=== PATIENT | male | born 1980 | race Caucasian/White ===

== ENCOUNTER 2024-03-01 13:32 | Outpatient (AMB) | payer OTHER, SELFPAY ==
[2024-03-01 13:36] VITALS: BP 118/82; PULSE 74; TEMP 36.9; O2SAT 97; BMI 35.1
--- NOTE | 2024-03-01 13:36 | AM.OFFWIN_ITS ---
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 Hurts more when breathing deeply. Started 12:40 pm today when mowing lawn Patient Tobacco Use Status: Never used Tobacco Allergies No Known Allergies Allergy (Verified 03/01/24 13:41) Do you need a note to return to daycare/school/sports/work: Yes HPI HPI Comments History of Present Illness Details Patient is a 43-year-old male complaining of rib pain and pain with deep inspiration x1 hour. He states it started when he was mowing the lawn and denies any trauma or falls. He states he may have twisted the wrong way and then he felt a pop. He has not sure if he pushes on it if it hurt as hes is afraid to press on his chest, he has not taken anything to try to make it feel better but he states deep breathing makes it worse. [facility] Surgical History No pertinent past surgical history Social History Patient Tobacco Use Status: Never used Tobacco Review of Systems Const All systems reviewed & are unremarkable except as noted in HPI and below Physical Exam Vital Signs: Last Vital Signs Temp 98.5 F 03/01/24 13:36 Pulse 74 03/01/24 13:36 BP 118/82 03/01/24 13:36 Pulse Ox 97 03/01/24 13:36 Oxygen Delivery Method Room Air 03/01/24 13:36 BMI result Body Mass Index 35.1 Chest Chest palpation & inspection: normal inspection of the chest and localized rib tenderness with anteroposterior compression (Central chest) Resp Effort & Inspection: normal respiratory effort and able to speak in complete sentences Auscultation: clear to auscultation bilaterally, no rales, no rhonchi, no wheezes and lung sounds not diminished Cardio Rate: regular rate Rhythm: regular rhythm Heart sounds: no gallops, no murmurs, no rubs and normal S1 and S2 Assessment & Plan Assessment & Plan (1) Pleuritic chest pain: Code(s): R07.81 - Pleurodynia Plan: As chest pain is reproducible, likely strained chest muscle/rib muscles when he turns the wrong way, explained this can take a long time to heal. I recommended rest, no working out, ice and NSAIDs and to be patient with healing. Plan see above Orders: Orders XR chest 2V Today R07.81 - Pleurodynia Coding Level of Care Code New Pt Level 3 (97857) Diagnoses Pleuritic chest pain R07.81
== END 2024-03-01 14:24 | disposition home or self-care (01) ==
PROVIDERS: PCP Internal Medicine; Visit Provider Physician Assistant
DX: R07.81 Pleurodynia (principal)
CPT/HCPCS: 99203

== ENCOUNTER 2024-03-01 13:49 | Outpatient (REF) | payer OTHER, SELFPAY ==
--- NOTE | ~2024-03-01 | XR_ITS ---
EXAMINATION: XR CHEST CLINICAL INFORMATION: Pleuritic tiny a COMPARISON: None available. TECHNIQUE: 2 views of the chest were obtained. FINDINGS: Minor atelectasis at the left base could reflect an early infiltrate. I would recommend a short-term follow-up. Lungs otherwise clear. No pleural effusions. Heart and pulmonary vessels are normal. XR/XR chest 2V IMPRESSION: Query early left basilar infiltrate.
== END 2024-03-01 13:50 | disposition home or self-care (01) ==
LOC: HO.HMGCX 13:49
PROVIDERS: PCP Internal Medicine; Visit Provider Physician Assistant
DX: R07.81 Pleurodynia (principal)
CPT/HCPCS: 71046

== ENCOUNTER → 2024-07-25 11:02 | Outpatient (BNVA) | payer OTHER, SELFPAY | PROVIDERS: PCP Internal Medicine; Visit Provider Physician Assistant Medical | DX: M54.41 Lumbago with sciatica, right side (principal) | CPT/HCPCS: 99203 ==

== ENCOUNTER → 2024-08-01 10:42 | Outpatient (BNVA) | payer OTHER, SELFPAY | PROVIDERS: PCP Internal Medicine; Visit Provider Physician Assistant Medical | DX: M54.41 Lumbago with sciatica, right side (principal) | CPT/HCPCS: 99213 ==

== ENCOUNTER → 2024-08-08 10:52 | Outpatient (BNVA) | payer OTHER, SELFPAY | PROVIDERS: PCP Internal Medicine; Visit Provider Physician Assistant Medical | DX: M54.50 Low back pain, unspecified (principal) | CPT/HCPCS: 99213 ==

== ENCOUNTER → 2024-08-28 09:51 | Outpatient (BNVA) | payer OTHER, SELFPAY | PROVIDERS: PCP Internal Medicine; Visit Provider Physician Assistant Medical | DX: M54.41 Lumbago with sciatica, right side (principal) | CPT/HCPCS: 99213 ==

== ENCOUNTER 2024-09-11 10:00 | Outpatient (RCR) | payer OTHER, SELFPAY ==
--- NOTE | 2024-08-10 11:42 | MHC.PT.EP ---
[facility] [place] [facility] [place] [facility] [address] Lori Casiano [address] [phone] F: [phone] F: [phone] F: [phone] F: [phone] Physical Therapy Plan of Care Date of Evaluation: 08/10/24 Date of Surgery: Diagnosis: This is a 44 yo male presenting to skilled PT with a script for sciatica. Assessment: This is a 44 yo male presenting to skilled PT with a script for sciatica. Patient reporting that he twisted to the R to unbolt a sink at work when he felt a pop in his back, had pain and this radiated to B LE (07/24). He went to urgent care, he had an x-ray (no fracture), was given a steroid and pain relivers. He is also being followed by work connection who prescribed him more medication and sent him to PT. Pain is located centralized low back but radiates to B sides as well (sharp pain). Occasionally he feels it in his legs still which can radiate to the toes B ( like spaghetti legs ). Pain increases with walking, sitting, dressing, the cold. He returns to work light duty on 08/13. He returns to work connection on 08/23. Assessment reveals pain that ranges from up to a 10/10 at the worst. Patient demos decreased lumbar and BLE ROM, strength of core, back and B LE's, TTP at lumbar surrounding soft tissues, lateral hips and impaired posture with forward head, thoracic kyphosis and rounded shoulders. Based on functional limitations, impaired QOL and pain tolerance patient is a good candidate for skilled PT 2x/wk for 4wks. Frequency and Duration: The patient will be seen 2x/wk for 4wks Short Term Goals: Pt will demonstrate improved postural awareness and understanding of core engagement with supine and standing tasks without cues throughout session to improve overall back safety in 2 weeks. Pt will demonstrate centralization of sx in 2 weeks. Pt will continue to reinforce precautions, sitting, standing and ADL modifications with proper body mechanics in 2 wks. 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 Pt will demonstrate ability to bend and lift WNL min to no pain for household tasks in 4 wks. Pt will be I in HEP and compliant in 4wks Pt will return to work in full when medically cleared by MD Treatment Plan: Modalities to reduce pain, spasms and effusion. Manual therapy to restore motion and function. Therapeutic exercise to improve strength and flexibility. Neuromuscular re-education for posture and balance. Therapeutic activities to return to functional activities of daily living. Electronically signed by: Ewa Rausch PT Please sign and return to therapist. Thank you for your referral.
--- NOTE | 2024-10-12 08:28 | MHC.PT.DC ---
[facility] [place] Office [place] Office [place] Office [address] Lori Casiano [address] [phone] F: [phone] F: [phone] F: [phone] F: [phone] Physical Therapy Discharge Report Diagnosis: This is a 44 yo male presenting to skilled PT with a script for sciatica. Date of Surgery: Date of Evaluation: 08/10/24 Date of Discharge: 10/12/24 Treatments to Date: 8 Cancellations to Date: 0 No Shows to Date: 0 Discharge Status: Achieved Goals Improved Function Independent with HEP Discharge Summary: Patient came to 8 sessions of PT with reports of some relief in symptoms. He has a good HEP to continue on his own at this time and skilled PT is no longer indicated at this time. Chart was DC'd after 30 days. Electronically signed by: Ewa Rausch PT Please sign and return to therapist. Thank you for your referral.
== END 2024-10-12 08:28 | disposition home or self-care (01) ==
LOC: HO.PTCHIC 10:00
PROVIDERS: PCP Internal Medicine; Visit Provider Physician Assistant Medical
DX: M54.42 Lumbago with sciatica, left side (principal); M54.41 Lumbago with sciatica, right side
CPT/HCPCS: 97110; 97140; 97162

== ENCOUNTER → 2024-09-13 09:34 | Outpatient (BNVA) | payer OTHER, SELFPAY | PROVIDERS: PCP Internal Medicine; Visit Provider Physician Assistant Medical | DX: M54.41 Lumbago with sciatica, right side (principal) | CPT/HCPCS: 99213 ==

== ENCOUNTER 2024-09-24 07:35 | Outpatient (REF) | payer OTHER, SELFPAY | END 2024-09-24 07:36 | disposition home or self-care (01) | LOC: HO.MRI 07:35 | PROVIDERS: Visit Provider Internal Medicine | DX: Z13.89 Encounter for screening for other disorder (principal) ==

== ENCOUNTER → 2024-10-04 09:15 | Outpatient (BNVA) | payer OTHER, SELFPAY | PROVIDERS: PCP Internal Medicine; Visit Provider Physician Assistant Medical | DX: M54.41 Lumbago with sciatica, right side (principal) | CPT/HCPCS: 99213 ==

== ENCOUNTER → 2024-10-25 09:31 | Outpatient (BNVA) | payer OTHER, SELFPAY | PROVIDERS: Visit Provider Physician Assistant Medical | DX: M54.17 Radiculopathy, lumbosacral region (principal) | CPT/HCPCS: 99213 ==

== ENCOUNTER → 2024-11-15 09:42 | Outpatient (BNVA) | payer OTHER, SELFPAY | PROVIDERS: Visit Provider Physician Assistant Medical | DX: M54.17 Radiculopathy, lumbosacral region (principal) | CPT/HCPCS: 99213 ==

== ENCOUNTER → 2024-12-06 09:25 | Outpatient (BNVA) | payer OTHER, SELFPAY | PROVIDERS: Visit Provider Physician Assistant Medical | DX: M54.17 Radiculopathy, lumbosacral region (principal) | CPT/HCPCS: 99213 ==

== ENCOUNTER → 2024-12-27 09:28 | Outpatient (BNVA) | payer OTHER, SELFPAY | PROVIDERS: Visit Provider Physician Assistant Medical | DX: M54.17 Radiculopathy, lumbosacral region (principal) | CPT/HCPCS: 99213 ==